=== PATIENT | female | born 1930 | race Caucasian/White ===

== ENCOUNTER → 2017-06-05 | Outpatient (CLI) | payer MEDICARE, OTHER | LOC: M.RAD 11:45 | DX: J96.21 Acute and chronic respiratory failure with hypoxia (principal); I70.0 Atherosclerosis of aorta; G45.9 Transient cerebral ischemic attack, unspecified ==

== ENCOUNTER → 2017-06-11 | Outpatient (CLI) | payer MEDICARE, OTHER ==
[2017-06-11 13:09] LABS: CREATININE 1.2 mg/dL (0.6-1.3)
== END ==
LOC: M.LAB 12:00 → M.CT 12:28 → M.LAB 13:00 → M.CT 14:00
PROVIDERS: Family Medicine
DX: J98.11 Atelectasis (principal); J43.8 Other emphysema; R91.8 Other nonspecific abnormal finding of lung field; K80.20 Calculus of gallbladder without cholecystitis without obstruction; R79.89 Other specified abnormal findings of blood chemistry; J96.21 Acute and chronic respiratory failure with hypoxia; G45.9 Transient cerebral ischemic attack, unspecified